=== PATIENT | female | born 1990 | race American Indian/Alaskan Native ===

== ENCOUNTER 2016-11-09 22:23 | Emergency (ER) | payer OTHER ==
[2016-11-09 22:40] VITALS: BP 139/74
[2016-11-10] MEDS ORDERED: BICILLIN L-A IM ONE (02:29)
[2016-11-10] MEDS ORDERED: DECADRON IM ONE (02:29)
--- NOTE | 2016-11-10 02:34 | Emergency Department Report ---
ED ENT HPI - General Chief complaint: Sore Throat Stated complaint: SORE THROAT, CATRACHITO Time Seen by Provider: 11/10/16 02:22 Source: patient Mode of arrival: Ambulatory Limitations: No Limitations - History of Present Illness Initial comments: 26-year-old female past medical history none presents complaining of 2 days of worsening sore throat, body aches, subjective fever chills. Patient states she has had multiple sick contacts at home and possibly one with strep throat. Patient is awake alert oriented 3 no audible stridor or wheezing on clinical exam, no drooling, states she has some difficulty swallowing solids but no difficulty swallowing fluids. Patient states she had some mild nausea earlier denies any cough. MD complaint: sore throat Onset/Timin -: days(s) Location: throat Severity: moderate Severity scale (0 -10): 5 Quality: aching - Related Data Previous Rx's Medication Instructions Recorded Last Taken Type Benzocaine/Menthol [Cepacol Sore 1 each MM Q6H PRN #18 lozenge 11/10/16 Unknown Rx Throat Lozenge] Ibuprofen [Motrin] 600 mg PO Q8H PRN #30 tablet 11/10/16 Unknown Rx ED Dental HPI - General Chief complaint: Sore Throat Stated complaint: SORE THROAT, CATRACHITO Time Seen by Provider: 11/10/16 02:22 Source: patient Mode of arrival: Ambulatory Limitations: No Limitations - Related Data Previous Rx's Medication Instructions Recorded Last Taken Type Benzocaine/Menthol [Cepacol Sore 1 each MM Q6H PRN #18 lozenge 11/10/16 Unknown Rx Throat Lozenge] Ibuprofen [Motrin] 600 mg PO Q8H PRN #30 tablet 11/10/16 Unknown Rx ED Review of Systems ROS: Stated complaint: SORE THROAT, CATRACHITO Other details as noted in HPI ED Past Medical Hx - Past Medical History Previous Medical History?: No - Surgical History Past Surgical History?: No - Social History Smoking Status: Never Smoker Substance Use Type: None - Medications Home Medications: Home Medications Medication Instructions Recorded Confirmed Last Taken Type Benzocaine/Menthol [Cepacol Sore 1 each MM Q6H PRN #18 lozenge 11/10/16 Unknown Rx Throat Lozenge] Ibuprofen [Motrin] 600 mg PO Q8H PRN #30 tablet 11/10/16 Unknown Rx ED Physical Exam - General Limitations: No Limitations General appearance: alert, in no apparent distress - Head Head exam: Present: atraumatic, normocephalic - Eye Eye exam: Present: normal appearance, PERRL, EOMI - ENT ENT exam: Present: mucous membranes moist - Expanded ENT Exam Expanded Throat exam: Positive: normal inspection, tonsillar exudate (mild amount of tonsillar exudates left) - Neck Neck exam: Present: normal inspection - Respiratory Respiratory exam: Present: normal lung sounds bilaterally. Absent: respiratory distress - Cardiovascular Cardiovascular Exam: Present: regular rate, normal rhythm. Absent: systolic murmur, diastolic murmur, rubs, gallop - GI/Abdominal GI/Abdominal exam: Present: soft, normal bowel sounds - Extremities Exam Extremities exam: Present: normal inspection - Back Exam Back exam: Present: normal inspection - Neurological Exam Neurological exam: Present: alert, oriented X3, CN II-XII intact, normal gait - Psychiatric Psychiatric exam: Present: normal affect, normal mood - Skin Skin exam: Present: warm, dry, intact, normal color. Absent: rash ED Course Vital Signs 11/09/16 22:36 Temperature 98.7 F Pulse Rate 87 Respiratory 18 Rate Blood Pressure 139/74 O2 Sat by Pulse 100 Oximetry ED Medical Decision Making - Medical Decision Making A/P: Pharyngitis 1-treat empirically based on symptoms [facility] 4 points 51% - 53% likelihood of strep 2-lozenges and Motrin when necessary Zofran when necessary 3-primary care doctor follow-up 4-I advised patient's return to the ED for any difficulty swallowing solids or fluids any shortness of breath any dyspnea worsened fever or chills Critical care attestation.: If time is entered above; I have spent that time in minutes in the direct care of this critically ill patient, excluding procedure time. ED Disposition Clinical Impression: Pharyngitis Qualifiers: Pharyngitis/tonsillitis etiology: unspecified etiology Qualified Code(s): J02.9 - Acute pharyngitis, unspecified Disposition: DISCHARGED TO HOME OR SELFCARE Is pt being admited?: No Does the pt Need Aspirin: No Condition: Stable Instructions: Pharyngitis (ED) Prescriptions: Benzocaine/Menthol [Cepacol Sore Throat Lozenge] 1 each MM Q6H PRN #18 lozenge PRN Reason: Sore Throat Ibuprofen [Motrin] 600 mg PO Q8H PRN #30 tablet PRN Reason: Pain Referrals: PRIMARY CARE,MD [Primary Care Provider] - 3-5 Days Forms: Accompanied Note, Work/School Release Form(ED) Time of Disposition: 02:33
== END 2016-11-10 03:02 | disposition home or self-care (01) ==
LOC: ED 22:23
DX: J02.9 Acute pharyngitis, unspecified (principal)
CPT/HCPCS: 96372; 99282; J0561; J1100

== ENCOUNTER 2017-04-01 16:56 | Emergency (ER) | payer SELFPAY | END 2017-04-01 17:00 | disposition left against medical advice (07) | LOC: ED 16:56 | DX: R52 Pain, unspecified (principal); Z53.21 Procedure and treatment not carried out due to patient leaving prior to being seen by health care provider ==